=== PATIENT | female | born 1980 | race African-American/Black ===

== ENCOUNTER 2018-05-03 16:46 | Emergency (ER) | payer OTHER ==
[2018-05-03] MEDS ORDERED: Lorazepam 2 MG/ML VIAL ONE (17:00)
[2018-05-03 17:13] LABS: Hemoglobin 10.4 g/dL (12.0-16.0); Mean Corpuscular HGB CONC 31.2 g/dL (32.0-36.0); Mean Corpuscular Hemoglobin 21.7 pg (27.0-31.0); Mean Corpuscular Volume 69.6 fL (78.0-98.0); Mean Platelet Volume 5.8 fL (7.4-10.4); Platelet Count 428 thou/uL (130-400); RBC Distribution Width 14.7 % (11.5-14.5); White Blood Cell (WBC) Count 10.7 thou/uL (4.8-10.8)
[2018-05-03 17:27] LABS: ALT (SGPT) 12 U/L (8-55); AST (SGOT) 14 U/L (5-34); Alkaline Phosphatase 60 U/L (40-150); Anion Gap 18 mmol/L (10-20); BUN (Urea Nitrogen) 11 mg/dL (7.0-18.7); Bilirubin, Total 0.2 mg/dL (0.2-1.2); Calc. Creatinine Clearance 0 mL/min (70-130); Calcium 9.8 mg/dL (7.8-10.44); Carbon Dioxide 22 mmol/L (22-29); Chloride 105 mmol/L (98-107); Estimated GFR-MDRD 88; Globulin 3.9 g/dL (2.4-3.5); Glucose 101 mg/dL (70-105); Potassium 3.6 mmol/L (3.5-5.1); Protein, Total 7.9 g/dL (6.0-8.3); Sodium 141 mmol/L (136-145)
[2018-05-03 17:31] LABS: #Basophils 0.1 thou/uL (0.0-0.2); #Eosinphils 0.1 thou/uL (0.0-0.7); #Lymphocytes 3.2 thou/uL (1.20-3.40); #Monocytes 0.4 thou/uL (0.11-0.59); #Neutrophils 6.9 thou/uL (1.40-6.50); %Basophils 0.7 % (0.0-1.0); %Eosinophils 1.3 % (0.0-10.0); %Monocytes 3.2 % (0.0-10.0); %Neutrophils 64.8 % (42.0-75.0); Hypochromia MODERATE=16-30 cells (100X) (0-5/hpf); MDiff Complete? YES; Microcytosis MODERATE=15-30 cells (100X) (0-5/hpf); Reflex for Review?? NO
[2018-05-03 17:36] LABS: Clarity Clear (Clear); Leukocyte Negative (Negative); Nitrite Negative (Negative); Pregnancy Test - Urine (BHCG) Negative (Negative); Pregu Control Background? CLEAR/WHITE (CLR/WHITE); Pregu Control Bar Appear? YES (CONTROL BAR); Protein, Urine (Dipstick) Negative (Neg-Trace)
[2018-05-03 17:37] LABS: Bilirubin Negative (Negative); Blood, Urine Negative (Negative); Glucose, Urine (Dipstick) Negative (Negative)
[2018-05-03 17:49] LABS: THC/Cannabinoid Screen Not Detected (NotDetected)
[2018-05-03 17:50] LABS: Amphetamine Not Detected (NotDetected); Barbiturates Screen Not Detected (NotDetected); Benzodiazepine Screen Not Detected (NotDetected); Cocaine Metabolite Screen Not Detected (NotDetected); Medtox Control Line Valid? VALID (VALID); Methadone Not Detected (NotDetected); Methamphetamine Not Detected (NotDetected); Opiate Screen Not Detected (NotDetected); Oxycodone Screen Not Detected (NotDetected); Phencyclidine (PCP) Not Detected (NotDetected); Tricyclic Screen Not Detected (NotDetected)
[2018-05-03] MEDS ORDERED: Amoxicillin/Potassium Clav 875 MG TAB ONE (18:03)
[2018-05-03] MEDS ORDERED: Oxymetazoline HCl 0.05% ( 15 ML ) ONE (18:44)
[2018-05-03] MEDS ORDERED: HYDROcodone/Acetaminophen 5/325 mg Tablet ONE (18:44)
[2018-05-03] MEDS ORDERED: Acetaminophen/Codeine 30-300mg Tablet ONE (18:50)
[2018-05-03 20:21] LABS: Troponin I Less than 0.010 ng/mL (< 0.028)
--- NOTE | 2018-05-03 21:41 | RAD ---
CHEST TWO VIEWS: 05/03/18 No prior scans were available for comparison. The heart is normal in size. There is no definite lobar infiltrate or effusion. Some of the right bas ilar markings may be a little more prominent than the left, but the finding is equivocal. The lungs a re otherwise clear. The tracheal is midline. IMPRESSION: Equivocal prominence of right basilar markings. POS: HOME
== END 2018-05-03 20:37 | disposition home or self-care (01) ==
LOC: BURERS 16:46
DX: R07.1 Chest pain on breathing (principal); J01.90 Acute sinusitis, unspecified; F41.0 Panic disorder [episodic paroxysmal anxiety]
CPT/HCPCS: 36415; 71046; 80053; 80306; 81003; 81025; 84484; 85025; 93005; 94760; 96374; J2060

== ENCOUNTER 2020-12-12 17:09 | Outpatient (CLI) | payer OTHER | END 2020-12-12 17:10 | disposition home or self-care (01) | LOC: BURRAD 17:09 | PROVIDERS: ATTEND Registered Nurse Community Health | DX: M79.671 Pain in right foot (principal); M77.31 Calcaneal spur, right foot ==